=== PATIENT | female | born 1965 | race Caucasian/White ===

== ENCOUNTER 2020-11-28 13:12 | Inpatient (IN) | payer OTHER ==
[2020-11-28 13:39] VITALS: BMI 34.9
[2020-11-28] MEDS ORDERED: BISMUTH SUBSALICYLATE 262 MG/15 ML BTL PO PRN (14:50)
[2020-11-28] MEDS ORDERED: ONDANSETRON *ODT* 4 MG TABLET SL PRN (14:50)
[2020-11-28] MEDS ORDERED: NICOTINE POLACRILEX 2 MG GUM BUC PRN (14:50)
[2020-11-28] MEDS ORDERED: IBUPROFEN 400 MG TABLET (FP) PO PRN (14:50)
[2020-11-28] MEDS ORDERED: MENTHOL/PHENOL 1 EACH UD MM PRN (14:50)
[2020-11-28] MEDS ORDERED: MAGNESIUM CITRATE 300 ML BOTTLE PO PRN (14:50)
[2020-11-28] MEDS ORDERED: ACETAMINOPHEN 325 MG TABLET (FP) PO PRN ×2 (14:50)
[2020-11-28] MEDS ORDERED: MAGNESIUM HYDROX 2400MG/30ML ORAL SUSPENSION 30 ML CUP PO PRN (14:50)
[2020-11-28] MEDS ORDERED: MAG HYDROX/AL HYDROX/SIMETH 30 ML UNIT-DOSE CUP PO PRN (14:50)
[2020-11-28] MEDS ORDERED: METHADONE HCL 10 MG TABLET (FOR DETOX USE ONLY) PO ONE (14:50)
[2020-11-28] MEDS: metFORMIN HCL 500 MG TABLET (FP) PO SCH (16:48)
[2020-11-28] MEDS: NICOTINE 21 MG/24 HOURS TOPICAL PATCH TD SCH (16:48)
[2020-11-28 16:57] LABS: HEMATOCRIT 44.7 % (32.4-45.2); HEMOGLOBIN 14.9 GM/dL (10.7-15.3); MCH 30.7 pg (25.7-33.7); MCHC 33.4 g/dl (32.0-36.0); MEAN PLT VOLUME 9.3 fl (7.5-11.1); PLATELET COUNT 279 K/MM3 (134-434); RBC 4.86 M/mm3 (3.60-5.2); RDW 13.4 % (11.6-15.6); WHITE BLOOD COUNT 11.2 K/mm3 (4.0-10.0)
[2020-11-28 17:08] LABS: ALBUMIN 3.9 g/dl (3.4-5.0); CALCIUM 9.5 mg/dL (8.5-10.1)
[2020-11-28 17:11] LABS: CREATININE 0.9 mg/dL (0.55-1.3)
[2020-11-28 17:13] LABS: BILIRUBIN,TOTAL 0.2 mg/dL (0.2-1)
[2020-11-28 17:14] LABS: TOT PROT 7.7 g/dl (6.4-8.2)
[2020-11-28] MEDS: hydrOXYzine PAMOATE 25 MG CAPSULE (FP) PO SCH ×2 (17:26→22:35)
[2020-11-28] MEDS: METHOCARBAMOL 500 MG TABLET PO PRN (19:09)
[2020-11-28] MEDS: cloNIDine HCL 0.1 MG TABLET PO PRN (19:09)
[2020-11-28] MEDS: MELATONIN 5 MG TABLETS PO SCH (22:35)
[2020-11-28] MEDS: ATORVASTATIN CA 40 MG TABLET (FP) PO SCH (22:35)
[2020-11-28] MEDS: THIAMINE HCL 100 MG TABLET (FP) PO SCH (22:35)
[2020-11-29] MEDS: hydrOXYzine PAMOATE 25 MG CAPSULE (FP) PO SCH ×2 (05:45→09:38)
[2020-11-29] MEDS: cloNIDine HCL 0.1 MG TABLET PO PRN ×2 (05:47→14:31)
[2020-11-29] MEDS: metFORMIN HCL 500 MG TABLET (FP) PO SCH ×2 (06:02→17:30)
[2020-11-29] MEDS ORDERED: METHADONE HCL 10 MG TABLET (FOR DETOX USE ONLY) ONE (08:45)
[2020-11-29] MEDS ORDERED: METHADONE HCL 5 MG TABLET (FOR DETOX USE ONLY) ONE (08:45)
[2020-11-29] MEDS: PRENATAL VITAMINS W/ FOLIC ACID TABLET (FP) PO SCH (09:38)
[2020-11-29] MEDS: NIFEdipine E.R. 90 MG TABLET PO SCH (09:38)
[2020-11-29] MEDS: LOSARTAN POTASSIUM 50 MG TABLET PO SCH (09:38)
[2020-11-29] MEDS: NICOTINE 21 MG/24 HOURS TOPICAL PATCH TD SCH (09:38)
[2020-11-29] MEDS: METHOCARBAMOL 500 MG TABLET PO PRN ×2 (09:39→18:25)
[2020-11-29] MEDS ORDERED: DICYCLOMINE HCL 10 MG CAPSULE PO PRN (09:58)
[2020-11-29] MEDS ORDERED: METHADONE (DETOX) 20 MG, METHADONE (DETOX) 5 MG PO ONE (10:00)
[2020-11-29] MEDS ORDERED: diphenhydrAMINE HCL 25 MG CAPSULE (FP) PO ONE (14:00)
[2020-11-29] MEDS: BACITRACIN 0.9 GM PACKET TP SCH ×2 (14:06→22:12)
[2020-11-29] MEDS: NYSTATIN/TRIAMCINOLONE TOPICAL CREAM 15 GM TUBE TP SCH ×2 (16:04→23:17)
[2020-11-29] MEDS: hydrOXYzine PAMOATE 25 MG CAPSULE (FP) PO PRN ×2 (17:31→22:12)
[2020-11-29] MEDS: MELATONIN 5 MG TABLETS PO SCH (22:12)
[2020-11-29] MEDS: THIAMINE HCL 100 MG TABLET (FP) PO SCH (22:12)
[2020-11-29] MEDS: ATORVASTATIN CA 40 MG TABLET (FP) PO SCH (22:12)
[2020-11-30] MEDS: METHOCARBAMOL 500 MG TABLET PO PRN (05:55)
[2020-11-30] MEDS: cloNIDine HCL 0.1 MG TABLET PO PRN ×2 (05:56→22:20)
[2020-11-30] MEDS: hydrOXYzine PAMOATE 25 MG CAPSULE (FP) PO PRN ×2 (05:56→22:21)
[2020-11-30] MEDS: metFORMIN HCL 500 MG TABLET (FP) PO SCH ×2 (07:52→17:03)
[2020-11-30] MEDS ORDERED: METHADONE HCL 10 MG TABLET (FOR DETOX USE ONLY) PO ONE (10:00)
[2020-11-30] MEDS: NYSTATIN/TRIAMCINOLONE TOPICAL CREAM 15 GM TUBE TP SCH ×2 (10:03→22:19)
[2020-11-30] MEDS: PRENATAL VITAMINS W/ FOLIC ACID TABLET (FP) PO SCH (10:03)
[2020-11-30] MEDS: BACITRACIN 0.9 GM PACKET TP SCH ×2 (10:03→22:19)
[2020-11-30] MEDS: NIFEdipine E.R. 90 MG TABLET PO SCH (10:03)
[2020-11-30] MEDS: NICOTINE 21 MG/24 HOURS TOPICAL PATCH TD SCH (10:05)
[2020-11-30] MEDS: LOSARTAN POTASSIUM 50 MG TABLET PO SCH (10:05)
[2020-11-30] MEDS: THIAMINE HCL 100 MG TABLET (FP) PO SCH (22:19)
[2020-11-30] MEDS: ATORVASTATIN CA 40 MG TABLET (FP) PO SCH (22:19)
[2020-11-30] MEDS: MELATONIN 5 MG TABLETS PO SCH (22:19)
[2020-12-01 06:08] LABS: SARS-CoV-2 NAA Not Detected (Not Detected)
[2020-12-01] MEDS: metFORMIN HCL 500 MG TABLET (FP) PO SCH ×2 (07:34→17:52)
[2020-12-01] MEDS: hydrOXYzine PAMOATE 25 MG CAPSULE (FP) PO PRN (07:34)
[2020-12-01] MEDS ORDERED: METHADONE HCL 5 MG TABLET (FOR DETOX USE ONLY) ONE (10:00)
[2020-12-01] MEDS ORDERED: METHADONE (DETOX) 10 MG, METHADONE (DETOX) 5 MG PO ONE (10:00)
[2020-12-01] MEDS ORDERED: METHADONE HCL 10 MG TABLET (FOR DETOX USE ONLY) ONE (10:00)
[2020-12-01] MEDS: LOSARTAN POTASSIUM 50 MG TABLET PO SCH (11:04)
[2020-12-01] MEDS: PRENATAL VITAMINS W/ FOLIC ACID TABLET (FP) PO SCH (11:04)
[2020-12-01] MEDS: BACITRACIN 0.9 GM PACKET TP SCH ×2 (11:05→22:10)
[2020-12-01] MEDS: NYSTATIN/TRIAMCINOLONE TOPICAL CREAM 15 GM TUBE TP SCH ×2 (11:06→22:10)
[2020-12-01] MEDS: NICOTINE 21 MG/24 HOURS TOPICAL PATCH TD SCH (11:07)
[2020-12-01] MEDS: NIFEdipine E.R. 90 MG TABLET PO SCH (11:07)
[2020-12-01] MEDS: METHOCARBAMOL 500 MG TABLET PO PRN ×2 (11:07→17:52)
[2020-12-01] MEDS: LITHIUM CARBONATE 300 MG CAPSULE PO SCH (22:10)
[2020-12-01] MEDS: THIAMINE HCL 100 MG TABLET (FP) PO SCH (22:10)
[2020-12-01] MEDS: MELATONIN 5 MG TABLETS PO SCH (22:10)
[2020-12-01] MEDS: ATORVASTATIN CA 40 MG TABLET (FP) PO SCH (22:10)
[2020-12-02] MEDS: hydrOXYzine PAMOATE 25 MG CAPSULE (FP) PO PRN ×2 (06:00→15:16)
[2020-12-02] MEDS: METHOCARBAMOL 500 MG TABLET PO PRN ×2 (06:00→15:16)
[2020-12-02] MEDS: metFORMIN HCL 500 MG TABLET (FP) PO SCH ×2 (06:00→18:10)
[2020-12-02] MEDS: PRENATAL VITAMINS W/ FOLIC ACID TABLET (FP) PO SCH (09:39)
[2020-12-02] MEDS: BACITRACIN 0.9 GM PACKET TP SCH ×2 (09:39→22:19)
[2020-12-02] MEDS: LOSARTAN POTASSIUM 50 MG TABLET PO SCH (09:39)
[2020-12-02] MEDS: NIFEdipine E.R. 90 MG TABLET PO SCH (09:39)
[2020-12-02] MEDS: NYSTATIN/TRIAMCINOLONE TOPICAL CREAM 15 GM TUBE TP SCH ×2 (09:42→22:20)
[2020-12-02] MEDS: NICOTINE 21 MG/24 HOURS TOPICAL PATCH TD SCH (09:42)
[2020-12-02] MEDS ORDERED: METHADONE HCL 10 MG TABLET (FOR DETOX USE ONLY) PO ONE (10:00)
[2020-12-02] MEDS: THIAMINE HCL 100 MG TABLET (FP) PO SCH (22:20)
[2020-12-02] MEDS: MELATONIN 5 MG TABLETS PO SCH (22:20)
[2020-12-02] MEDS: ATORVASTATIN CA 40 MG TABLET (FP) PO SCH (22:20)
[2020-12-02] MEDS: LITHIUM CARBONATE 300 MG CAPSULE PO SCH (22:21)
[2020-12-03] MEDS ORDERED: METHADONE HCL 5 MG TABLET (FOR DETOX USE ONLY) PO ONE (06:00)
[2020-12-03] MEDS: hydrOXYzine PAMOATE 25 MG CAPSULE (FP) PO PRN (06:28)
[2020-12-03] MEDS: METHOCARBAMOL 500 MG TABLET PO PRN (06:28)
[2020-12-03] MEDS: metFORMIN HCL 500 MG TABLET (FP) PO SCH (06:28)
[2020-12-03 09:09] VITALS: BP 144/76; PULSE 73; TEMP 96.6
[2020-12-03] MEDS: BACITRACIN 0.9 GM PACKET TP SCH (09:38)
[2020-12-03] MEDS: PRENATAL VITAMINS W/ FOLIC ACID TABLET (FP) PO SCH (09:38)
[2020-12-03] MEDS: NIFEdipine E.R. 90 MG TABLET PO SCH (09:38)
[2020-12-03] MEDS: LOSARTAN POTASSIUM 50 MG TABLET PO SCH (09:38)
[2020-12-03] MEDS: NICOTINE 21 MG/24 HOURS TOPICAL PATCH TD SCH (09:40)
[2020-12-03] MEDS: NYSTATIN/TRIAMCINOLONE TOPICAL CREAM 15 GM TUBE TP SCH (09:40)
== END 2020-12-03 10:18 | disposition home or self-care (01) | DRG 773 ==
LOC: YASAS 13:12 → Y3N 15:07
PROVIDERS: ADMIT Allergy & Immunology; ATTEND Allergy & Immunology
PROC: HZ2ZZZZ Detoxification Services for Substance Abuse Treatment (ICD-10-PCS; principal; 2020-11-28)
DX: F11.23 Opioid dependence with withdrawal (principal); F12.10 Cannabis abuse, uncomplicated; F17.210 Nicotine dependence, cigarettes, uncomplicated; F31.9 Bipolar disorder, unspecified; I10 Essential (primary) hypertension; J45.909 Unspecified asthma, uncomplicated; E11.9 Type 2 diabetes mellitus without complications; Z79.84 Long term (current) use of oral hypoglycemic drugs; D72.829 Elevated white blood cell count, unspecified; R79.89 Other specified abnormal findings of blood chemistry; L74.0 Miliaria rubra; M51.26 Other intervertebral disc displacement, lumbar region; M25.562 Pain in left knee; E66.9 Obesity, unspecified; Z68.34 Body mass index [BMI] 34.0-34.9, adult; Z88.0 Allergy status to penicillin; Z88.8 Allergy status to other drugs, medicaments and biological substances; Z91.018 Allergy to other foods; Z99.89 Dependence on other enabling machines and devices; T22.012D Burn of unspecified degree of left forearm, subsequent encounter; X15.0XXD Contact with hot stove (kitchen), subsequent encounter
CPT/HCPCS: 36415; 80053; 80178; 81025; 82962; 85027; 86780; 93005; 93010; C9803; J0735; U0003; U0005

== ENCOUNTER 2021-01-14 09:54 | Inpatient (IN) | payer OTHER ==
[2021-01-14 12:23] VITALS: BMI 32.5
[2021-01-14] MEDS ORDERED: methaDONE HCL 10 MG TABLET (FOR DETOX USE ONLY) PO ONE (14:07)
[2021-01-14] MEDS ORDERED: ACETAMINOPHEN 325 MG TABLET (FP) PO PRN ×2 (14:07)
[2021-01-14] MEDS ORDERED: NICOTINE POLACRILEX 2 MG GUM BUC PRN (14:07)
[2021-01-14] MEDS ORDERED: MAGNESIUM CITRATE 300 ML BOTTLE PO PRN (14:07)
[2021-01-14] MEDS ORDERED: MAGNESIUM HYDROX 2400MG/30ML ORAL SUSPENSION 30 ML CUP PO PRN (14:07)
[2021-01-14] MEDS ORDERED: ONDANSETRON *ODT* 4 MG TABLET SL PRN (14:07)
[2021-01-14] MEDS ORDERED: MENTHOL/PHENOL 1 EACH UD MM PRN (14:07)
[2021-01-14] MEDS ORDERED: BISMUTH SUBSALICYLATE 524 MG/30 ML PO PRN (14:07)
[2021-01-14] MEDS ORDERED: cloNIDine HCL 0.1 MG TABLET PO PRN (14:07)
[2021-01-14] MEDS: IBUPROFEN 400 MG TABLET (FP) PO PRN (15:39)
[2021-01-14] MEDS: NICOTINE 21 MG/24 HOURS TOPICAL PATCH TD SCH (15:40)
[2021-01-14] MEDS ORDERED: ALBUTEROL SO4 HFA INHALER IH PRN (17:10)
[2021-01-14] MEDS: hydrOXYzine PAMOATE 25 MG CAPSULE (FP) PO SCH ×2 (17:44→22:18)
[2021-01-14] MEDS: LOSARTAN POTASSIUM 50 MG TABLET PO SCH (17:44)
[2021-01-14] MEDS: NIFEdipine E.R. 90 MG TABLET PO SCH (19:32)
[2021-01-14] MEDS ORDERED: MELATONIN 5 MG TABLETS PO SCH (22:00)
[2021-01-14] MEDS: ATORVASTATIN CA 40 MG TABLET (FP) PO SCH (22:18)
[2021-01-14] MEDS: THIAMINE HCL 100 MG TABLET (FP) PO SCH (22:18)
[2021-01-14] MEDS: INSULIN (NOVOLOG) ASPART 100 UNITS/ML 10ML VIAL SQ SCH (22:19)
[2021-01-15] MEDS: hydrOXYzine PAMOATE 25 MG CAPSULE (FP) PO SCH ×5 (05:50→22:23)
[2021-01-15] MEDS: metFORMIN HCL 500 MG TABLET (FP) PO SCH ×2 (06:02→16:46)
[2021-01-15] MEDS: INSULIN (NOVOLOG) ASPART 100 UNITS/ML 10ML VIAL SQ SCH ×4 (06:07→22:28)
[2021-01-15] MEDS ORDERED: methaDONE HCL 10 MG TABLET (FOR DETOX USE ONLY) ONE (09:09)
[2021-01-15] MEDS: METHOCARBAMOL 500 MG TABLET PO PRN (10:01)
[2021-01-15] MEDS: NIFEdipine E.R. 90 MG TABLET PO SCH (10:01)
[2021-01-15] MEDS: LOSARTAN POTASSIUM 50 MG TABLET PO SCH (10:01)
[2021-01-15] MEDS: PRENATAL VITAMINS W/ FOLIC ACID TABLET (FP) PO SCH (10:01)
[2021-01-15] MEDS: NICOTINE 21 MG/24 HOURS TOPICAL PATCH TD SCH (10:04)
[2021-01-15] MEDS ORDERED: COVID-19 VAC,AD26(JANSSEN)/PF 0.5 ML IM ONE (11:00)
[2021-01-15] MEDS: diazePAM 5 MG TABLET PO PRN (11:31)
[2021-01-15 13:40] LABS: PH,URINE 7.5 (5.0-8.0); URINE APPEARANCE Clear; URINE BILIRUBIN Negative (NEGATIVE); URINE COLOR Yellow; URINE GLUCOSE (UA) Negative (NEGATIVE); URINE KETONE Negative (NEGATIVE); URINE LEUK ESTERASE Negative (NEGATIVE); URINE NITRITE Negative (NEGATIVE); URINE PROTEIN Negative (NEGATIVE); URINE UROBILINOGEN 0.2 mg/dL (0.2-1.0)
[2021-01-15 17:05] LABS: HEMATOCRIT 41.3 % (32.4-45.2); HEMOGLOBIN 13.8 GM/dL (10.7-15.3); MCH 30.2 pg (25.7-33.7); MCHC 33.4 g/dl (32.0-36.0); MEAN CELL VOLUME 90.4 fl (80-96); MEAN PLT VOLUME 10.4 fl (7.5-11.1); PLATELET COUNT 195 10^3/uL (134-434); RBC 4.57 M/mm3 (3.60-5.2); RDW 13.7 % (11.6-15.6); WHITE BLOOD COUNT 16.3 K/mm3 (4.0-10.0)
[2021-01-15 17:11] LABS: CALCIUM 8.8 mg/dL (8.5-10.1)
[2021-01-15 17:12] LABS: ALBUMIN 3.8 g/dl (3.4-5.0); BLOOD UREA NITROGEN 17.6 mg/dL (7-18)
[2021-01-15 17:15] LABS: CREATININE 0.8 mg/dL (0.55-1.3)
[2021-01-15 17:16] LABS: BILIRUBIN,TOTAL 0.3 mg/dL (0.2-1); TOT PROT 7.6 g/dl (6.4-8.2)
[2021-01-15] MEDS: MAG HYDROX/AL HYDROX/SIMETH 30 ML UNIT-DOSE CUP PO PRN (21:24)
[2021-01-15] MEDS: THIAMINE HCL 100 MG TABLET (FP) PO SCH (22:23)
[2021-01-15] MEDS: ATORVASTATIN CA 40 MG TABLET (FP) PO SCH (22:23)
[2021-01-15] MEDS: LITHIUM CARBONATE 300 MG CAPSULE PO SCH (22:24)
[2021-01-16] MEDS: IBUPROFEN 400 MG TABLET (FP) PO PRN ×3 (06:07→22:06)
[2021-01-16] MEDS: metFORMIN HCL 500 MG TABLET (FP) PO SCH ×2 (06:07→17:49)
[2021-01-16] MEDS: hydrOXYzine PAMOATE 25 MG CAPSULE (FP) PO SCH ×5 (06:07→22:03)
[2021-01-16] MEDS: INSULIN (NOVOLOG) ASPART 100 UNITS/ML 10ML VIAL SQ SCH ×4 (06:09→22:04)
[2021-01-16] MEDS: diazePAM 5 MG TABLET PO PRN (07:27)
[2021-01-16] MEDS ORDERED: MASKS NR ONE (09:44)
[2021-01-16] MEDS ORDERED: methaDONE HCL 10 MG TABLET (FOR DETOX USE ONLY) PO ONE (10:00)
[2021-01-16] MEDS: NIFEdipine E.R. 90 MG TABLET PO SCH (10:09)
[2021-01-16] MEDS: PRENATAL VITAMINS W/ FOLIC ACID TABLET (FP) PO SCH (10:10)
[2021-01-16] MEDS: NICOTINE 21 MG/24 HOURS TOPICAL PATCH TD SCH (10:10)
[2021-01-16] MEDS: LOSARTAN POTASSIUM 50 MG TABLET PO SCH (10:12)
[2021-01-16] MEDS: MAG HYDROX/AL HYDROX/SIMETH 30 ML UNIT-DOSE CUP PO PRN ×2 (12:39→22:18)
[2021-01-16] MEDS: TRIAMCINOLONE ACET 0.1% CREAM 15 GM TUBE TP SCH ×3 (14:02→22:04)
[2021-01-16] MEDS: ATORVASTATIN CA 40 MG TABLET (FP) PO SCH (22:03)
[2021-01-16] MEDS: THIAMINE HCL 100 MG TABLET (FP) PO SCH (22:03)
[2021-01-16] MEDS: LITHIUM CARBONATE 300 MG CAPSULE PO SCH (22:04)
[2021-01-17] MEDS: METHOCARBAMOL 500 MG TABLET PO PRN (05:46)
[2021-01-17] MEDS: hydrOXYzine PAMOATE 25 MG CAPSULE (FP) PO SCH ×5 (05:46→22:09)
[2021-01-17] MEDS: metFORMIN HCL 500 MG TABLET (FP) PO SCH ×2 (06:08→18:02)
[2021-01-17] MEDS: INSULIN (NOVOLOG) ASPART 100 UNITS/ML 10ML VIAL SQ SCH ×4 (06:08→22:09)
[2021-01-17] MEDS ORDERED: methaDONE HCL 10 MG TABLET (FOR DETOX USE ONLY) ONE (08:50)
[2021-01-17] MEDS: NICOTINE 21 MG/24 HOURS TOPICAL PATCH TD SCH (10:10)
[2021-01-17] MEDS: MAG HYDROX/AL HYDROX/SIMETH 30 ML UNIT-DOSE CUP PO PRN (10:10)
[2021-01-17] MEDS: IBUPROFEN 400 MG TABLET (FP) PO PRN (10:11)
[2021-01-17] MEDS: NIFEdipine E.R. 90 MG TABLET PO SCH (10:12)
[2021-01-17] MEDS: TRIAMCINOLONE ACET 0.1% CREAM 15 GM TUBE TP SCH ×4 (10:12→22:10)
[2021-01-17] MEDS: LOSARTAN POTASSIUM 50 MG TABLET PO SCH (10:12)
[2021-01-17] MEDS: PRENATAL VITAMINS W/ FOLIC ACID TABLET (FP) PO SCH (10:12)
[2021-01-17] MEDS: THIAMINE HCL 100 MG TABLET (FP) PO SCH (22:09)
[2021-01-17] MEDS: ATORVASTATIN CA 40 MG TABLET (FP) PO SCH (22:09)
[2021-01-17] MEDS: MELATONIN 5 MG TABLETS PO PRN (22:09)
[2021-01-17] MEDS: LITHIUM CARBONATE 300 MG CAPSULE PO SCH (22:09)
[2021-01-18] MEDS: MAG HYDROX/AL HYDROX/SIMETH 30 ML UNIT-DOSE CUP PO PRN (00:01)
[2021-01-18] MEDS: metFORMIN HCL 500 MG TABLET (FP) PO SCH ×2 (06:52→18:11)
[2021-01-18] MEDS: hydrOXYzine PAMOATE 25 MG CAPSULE (FP) PO SCH ×5 (06:52→22:24)
[2021-01-18] MEDS: INSULIN (NOVOLOG) ASPART 100 UNITS/ML 10ML VIAL SQ SCH ×4 (07:28→22:23)
[2021-01-18] MEDS ORDERED: methaDONE HCL 10 MG TABLET (FOR DETOX USE ONLY) PO ONE (10:00)
[2021-01-18] MEDS: LOSARTAN POTASSIUM 50 MG TABLET PO SCH (10:03)
[2021-01-18] MEDS: NICOTINE 21 MG/24 HOURS TOPICAL PATCH TD SCH (10:03)
[2021-01-18] MEDS: PRENATAL VITAMINS W/ FOLIC ACID TABLET (FP) PO SCH (10:03)
[2021-01-18] MEDS: TRIAMCINOLONE ACET 0.1% CREAM 15 GM TUBE TP SCH ×4 (10:04→22:23)
[2021-01-18] MEDS: NIFEdipine E.R. 90 MG TABLET PO SCH (10:04)
[2021-01-18] MEDS: LITHIUM CARBONATE 300 MG CAPSULE PO SCH (22:17)
[2021-01-18] MEDS: ATORVASTATIN CA 40 MG TABLET (FP) PO SCH (22:17)
[2021-01-18] MEDS: THIAMINE HCL 100 MG TABLET (FP) PO SCH (22:24)
[2021-01-19] MEDS: hydrOXYzine PAMOATE 25 MG CAPSULE (FP) PO SCH ×5 (06:36→21:47)
[2021-01-19] MEDS: metFORMIN HCL 500 MG TABLET (FP) PO SCH ×2 (06:38→17:26)
[2021-01-19] MEDS: INSULIN (NOVOLOG) ASPART 100 UNITS/ML 10ML VIAL SQ SCH ×4 (06:39→21:46)
[2021-01-19] MEDS: NIFEdipine E.R. 90 MG TABLET PO SCH (10:18)
[2021-01-19] MEDS: PRENATAL VITAMINS W/ FOLIC ACID TABLET (FP) PO SCH (10:18)
[2021-01-19] MEDS: LOSARTAN POTASSIUM 50 MG TABLET PO SCH (10:18)
[2021-01-19] MEDS: NICOTINE 21 MG/24 HOURS TOPICAL PATCH TD SCH (10:18)
[2021-01-19] MEDS: TRIAMCINOLONE ACET 0.1% CREAM 15 GM TUBE TP SCH ×4 (10:18→22:09)
[2021-01-19] MEDS: METHOCARBAMOL 500 MG TABLET PO PRN (10:19)
[2021-01-19] MEDS: THIAMINE HCL 100 MG TABLET (FP) PO SCH (21:47)
[2021-01-19] MEDS: LITHIUM CARBONATE 300 MG CAPSULE PO SCH (21:47)
[2021-01-19] MEDS: ATORVASTATIN CA 40 MG TABLET (FP) PO SCH (21:47)
[2021-01-19] MEDS: MELATONIN 5 MG TABLETS PO PRN (21:48)
[2021-01-20] MEDS: INSULIN (NOVOLOG) ASPART 100 UNITS/ML 10ML VIAL SQ SCH ×4 (06:05→21:15)
[2021-01-20] MEDS: hydrOXYzine PAMOATE 25 MG CAPSULE (FP) PO SCH ×3 (06:06→14:16)
[2021-01-20] MEDS: metFORMIN HCL 500 MG TABLET (FP) PO SCH ×2 (06:06→17:08)
[2021-01-20] MEDS: IBUPROFEN 400 MG TABLET (FP) PO PRN (06:07)
[2021-01-20] MEDS: PRENATAL VITAMINS W/ FOLIC ACID TABLET (FP) PO SCH (10:34)
[2021-01-20] MEDS: NICOTINE 21 MG/24 HOURS TOPICAL PATCH TD SCH (10:35)
[2021-01-20] MEDS: LOSARTAN POTASSIUM 50 MG TABLET PO SCH (10:38)
[2021-01-20] MEDS: METHOCARBAMOL 500 MG TABLET PO PRN (10:38)
[2021-01-20] MEDS: MAG HYDROX/AL HYDROX/SIMETH 30 ML UNIT-DOSE CUP PO PRN (10:39)
[2021-01-20] MEDS: TRIAMCINOLONE ACET 0.1% CREAM 15 GM TUBE TP SCH ×4 (10:39→21:15)
[2021-01-20] MEDS: NIFEdipine E.R. 90 MG TABLET PO SCH (10:39)
[2021-01-20] MEDS: ATORVASTATIN CA 40 MG TABLET (FP) PO SCH (21:14)
[2021-01-20] MEDS: THIAMINE HCL 100 MG TABLET (FP) PO SCH (21:14)
[2021-01-20] MEDS: LITHIUM CARBONATE 300 MG CAPSULE PO SCH (21:15)
[2021-01-20] MEDS: MELATONIN 5 MG TABLETS PO PRN (21:16)
[2021-01-21] MEDS: IBUPROFEN 400 MG TABLET (FP) PO PRN ×2 (03:36→12:02)
[2021-01-21] MEDS: INSULIN (NOVOLOG) ASPART 100 UNITS/ML 10ML VIAL SQ SCH ×4 (06:12→22:10)
[2021-01-21] MEDS: metFORMIN HCL 500 MG TABLET (FP) PO SCH ×2 (06:12→17:42)
[2021-01-21] MEDS: LOSARTAN POTASSIUM 50 MG TABLET PO SCH (10:33)
[2021-01-21] MEDS: PRENATAL VITAMINS W/ FOLIC ACID TABLET (FP) PO SCH (10:33)
[2021-01-21] MEDS: NIFEdipine E.R. 90 MG TABLET PO SCH (10:33)
[2021-01-21] MEDS: TRIAMCINOLONE ACET 0.1% CREAM 15 GM TUBE TP SCH ×4 (10:33→22:13)
[2021-01-21] MEDS: NICOTINE 21 MG/24 HOURS TOPICAL PATCH TD SCH (10:33)
[2021-01-21] MEDS ORDERED: hydrOXYzine PAMOATE 25 MG CAPSULE (FP) PO ONE (13:31)
[2021-01-21] MEDS ORDERED: PT OWN MED DRAWER 7, Y5N ONE (17:45)
[2021-01-21] MEDS: ATORVASTATIN CA 40 MG TABLET (FP) PO SCH (22:13)
[2021-01-21] MEDS: THIAMINE HCL 100 MG TABLET (FP) PO SCH (22:13)
[2021-01-21] MEDS: LITHIUM CARBONATE 300 MG CAPSULE PO SCH (22:13)
[2021-01-22] MEDS: IBUPROFEN 400 MG TABLET (FP) PO PRN ×2 (04:27→11:47)
[2021-01-22] MEDS: metFORMIN HCL 500 MG TABLET (FP) PO SCH (06:47)
[2021-01-22] MEDS: INSULIN (NOVOLOG) ASPART 100 UNITS/ML 10ML VIAL SQ SCH ×2 (06:48→11:48)
[2021-01-22 07:39] VITALS: TEMP 98.2
[2021-01-22 09:18] VITALS: BP 141/76; PULSE 67
[2021-01-22] MEDS: PRENATAL VITAMINS W/ FOLIC ACID TABLET (FP) PO SCH (10:53)
[2021-01-22] MEDS: NICOTINE 21 MG/24 HOURS TOPICAL PATCH TD SCH (10:53)
[2021-01-22] MEDS: LOSARTAN POTASSIUM 50 MG TABLET PO SCH (10:53)
[2021-01-22] MEDS: TRIAMCINOLONE ACET 0.1% CREAM 15 GM TUBE TP SCH (10:54)
[2021-01-22] MEDS: NIFEdipine E.R. 90 MG TABLET PO SCH (10:54)
[2021-01-22] MEDS ORDERED: hydrOXYzine PAMOATE 25 MG CAPSULE (FP) PO PRN (11:24)
== END 2021-01-19 17:40 | disposition home or self-care (01) | DRG 773 ==
LOC: YASAS 09:54 → Y6N 14:34 → Y5N 01-19 18:11 → Y6N 01-19 18:11 → Y5N 01-19 19:25
PROVIDERS: ADMIT Allergy & Immunology; ATTEND Allergy & Immunology
PROC: HZ2ZZZZ Detoxification Services for Substance Abuse Treatment (ICD-10-PCS; principal; 2021-01-14)
DX: F11.23 Opioid dependence with withdrawal (principal); F17.210 Nicotine dependence, cigarettes, uncomplicated; F19.282 Other psychoactive substance dependence with psychoactive substance-induced sleep disorder; F19.24 Other psychoactive substance dependence with psychoactive substance-induced mood disorder; F31.9 Bipolar disorder, unspecified; I10 Essential (primary) hypertension; E11.9 Type 2 diabetes mellitus without complications; Z79.84 Long term (current) use of oral hypoglycemic drugs; J45.909 Unspecified asthma, uncomplicated; E66.9 Obesity, unspecified; Z68.32 Body mass index [BMI] 32.0-32.9, adult; M12.9 Arthropathy, unspecified; M51.26 Other intervertebral disc displacement, lumbar region; Z99.89 Dependence on other enabling machines and devices; Z88.8 Allergy status to other drugs, medicaments and biological substances; Z56.0 Unemployment, unspecified; Z59.0 Homelessness
CPT/HCPCS: 0031A; 36415; 80053; 81003; 81025; 82962; 84132; 85027; 86780; 91303; C9803; U0003; U0005

== ENCOUNTER 2021-01-19 17:45 | Inpatient (IN) | payer OTHER ==
[2021-01-22] MEDS ORDERED: P-EPHED 60MG/TRIPROLIDI 2.5MG TABLET PO PRN (12:44)
[2021-01-22] MEDS ORDERED: IBUPROFEN 400 MG TABLET (FP) PO PRN (12:44)
[2021-01-22] MEDS ORDERED: guaiFENesin 200 MG/10 ML 10 ML UNIT-DOSE CUPS PO PRN (12:44)
[2021-01-22] MEDS ORDERED: MAGNESIUM CITRATE 300 ML BOTTLE PO PRN (12:44)
[2021-01-22] MEDS ORDERED: ACETAMINOPHEN 325 MG TABLET (FP) PO PRN (12:44)
[2021-01-22] MEDS ORDERED: NICOTINE POLACRILEX 2 MG GUM BUC PRN (12:44)
[2021-01-22] MEDS ORDERED: MAG HYDROX/AL HYDROX/SIMETH 30 ML UNIT-DOSE CUP PO PRN (12:44)
[2021-01-22] MEDS ORDERED: LOPERAMIDE HCL 2 MG CAPSULE PO PRN (12:44)
[2021-01-22] MEDS ORDERED: MAGNESIUM HYDROX 2400MG/30ML ORAL SUSPENSION 30 ML CUP PO PRN (12:44)
[2021-01-22] MEDS ORDERED: PRENATAL VITAMINS W/ FOLIC ACID TABLET (FP) PO SCH (12:45)
[2021-01-22] MEDS ORDERED: ALBUTEROL SO4 HFA INHALER IH PRN (12:53)
[2021-01-22] MEDS ORDERED: NALOXONE (NARCAN) HCL 4 MG/0.1 ML SPRAY NS PRN (12:55)
[2021-01-22] MEDS ORDERED: NICOTINE 14 MG/24 HOURS TOPICAL PATCH TD SCH (13:00)
[2021-01-22] MEDS ORDERED: NIFEdipine E.R. 90 MG TABLET PO SCH (13:00)
[2021-01-22] MEDS: hydrOXYzine PAMOATE 25 MG CAPSULE (FP) PO SCH ×3 (14:38→23:04)
[2021-01-22] MEDS: metFORMIN HCL 500 MG TABLET (FP) PO SCH (17:05)
[2021-01-22] MEDS ORDERED: MELATONIN 5 MG TABLETS PO SCH (22:00)
[2021-01-22] MEDS ORDERED: ATORVASTATIN CA 40 MG TABLET (FP) PO SCH (22:00)
[2021-01-22] MEDS ORDERED: THIAMINE HCL 100 MG TABLET (FP) PO SCH (22:00)
[2021-01-22] MEDS ORDERED: LITHIUM CARBONATE 300 MG CAPSULE PO SCH (22:00)
[2021-01-22] MEDS ORDERED: PT OWN MED DRAWER 7, Y5N ONE (23:03)
[2021-01-23] MEDS: hydrOXYzine PAMOATE 25 MG CAPSULE (FP) PO SCH (06:04)
[2021-01-23] MEDS: metFORMIN HCL 500 MG TABLET (FP) PO SCH (06:04)
[2021-01-23 07:33] VITALS: BP 129/68; PULSE 67; TEMP 97.4
[2021-01-23] MEDS ORDERED: LOSARTAN POTASSIUM 50 MG TABLET PO SCH (10:00)
== END 2021-01-23 08:55 | disposition home or self-care (01) | DRG 772 ==
LOC: YASAS 17:45 → Y5N 17:46
PROVIDERS: ADMIT Allergy & Immunology; ATTEND Allergy & Immunology
PROC: HZ42ZZZ Group Counseling for Substance Abuse Treatment, Cognitive-Behavioral (ICD-10-PCS; principal; 2021-01-19)
DX: F11.20 Opioid dependence, uncomplicated (principal); F17.210 Nicotine dependence, cigarettes, uncomplicated; F31.9 Bipolar disorder, unspecified; I10 Essential (primary) hypertension; E78.5 Hyperlipidemia, unspecified; E11.9 Type 2 diabetes mellitus without complications; Z79.84 Long term (current) use of oral hypoglycemic drugs; J45.909 Unspecified asthma, uncomplicated; L40.9 Psoriasis, unspecified; M12.9 Arthropathy, unspecified; M51.26 Other intervertebral disc displacement, lumbar region; E66.9 Obesity, unspecified; Z68.32 Body mass index [BMI] 32.0-32.9, adult; Z99.89 Dependence on other enabling machines and devices; Z88.0 Allergy status to penicillin; Z88.8 Allergy status to other drugs, medicaments and biological substances
CPT/HCPCS: 36415; 82962; 84132; C9803; U0003; U0005

== ENCOUNTER 2021-05-14 12:31 | Inpatient (IN) | payer OTHER ==
[2021-05-14 14:16] VITALS: BMI 33.9
[2021-05-14] MEDS ORDERED: MENTHOL/PHENOL 1 EACH UD MM PRN (17:42)
[2021-05-14] MEDS ORDERED: BISMUTH SUBSALICYLATE 524 MG/30 ML PO PRN (17:42)
[2021-05-14] MEDS ORDERED: MAGNESIUM CITRATE 300 ML BOTTLE PO PRN (17:42)
[2021-05-14] MEDS ORDERED: ONDANSETRON *ODT* 4 MG TABLET SL PRN (17:42)
[2021-05-14] MEDS ORDERED: ACETAMINOPHEN 325 MG TABLET (FP) PO PRN (17:42)
[2021-05-14] MEDS ORDERED: MAGNESIUM HYDROX 2400MG/30ML ORAL SUSPENSION 30 ML CUP PO PRN (17:42)
[2021-05-14] MEDS ORDERED: NICOTINE 10 MG CARTRIDGE (INHALER) IH PRN (17:42)
[2021-05-14] MEDS ORDERED: MAG HYDROX/AL HYDROX/SIMETH 30 ML UNIT-DOSE CUP PO PRN (17:42)
[2021-05-14] MEDS: hydrOXYzine PAMOATE 25 MG CAPSULE (FP) PO SCH ×2 (19:44→23:10)
[2021-05-14] MEDS: METHOCARBAMOL 500 MG TABLET PO PRN (19:44)
[2021-05-14] MEDS: IBUPROFEN 400 MG TABLET (FP) PO PRN (19:47)
[2021-05-14] MEDS: NICOTINE 21 MG/24 HOURS TOPICAL PATCH TD SCH (19:49)
[2021-05-14] MEDS: ATORVASTATIN CA 40 MG TABLET (FP) PO SCH (23:10)
[2021-05-14] MEDS: MELATONIN 5 MG TABLETS PO SCH (23:10)
[2021-05-14] MEDS: THIAMINE HCL 100 MG TABLET (FP) PO SCH (23:10)
[2021-05-15] MEDS: hydrOXYzine PAMOATE 25 MG CAPSULE (FP) PO SCH (06:32)
[2021-05-15] MEDS: metFORMIN HCL 500 MG TABLET (FP) PO SCH ×2 (06:32→18:02)
[2021-05-15] MEDS ORDERED: hydrOXYzine PAMOATE 25 MG CAPSULE (FP) PO PRN (08:53)
[2021-05-15] MEDS ORDERED: methaDONE HCL 10 MG TABLET (FOR DETOX USE ONLY) PO ONE (10:40)
[2021-05-15] MEDS ORDERED: TRIMETHOBENZAMIDE HCL 300 MG CAPSULE PO PRN (10:41)
[2021-05-15 11:33] LABS: HEMATOCRIT 38.7 % (32.4-45.2); HEMOGLOBIN 13.4 GM/dL (10.7-15.3); MCH 30.6 pg (25.7-33.7); MCHC 34.6 g/dl (32.0-36.0); MEAN CELL VOLUME 88.4 fl (80-96); MEAN PLT VOLUME 9.3 fl (7.5-11.1); PLATELET COUNT 221 10^3/uL (134-434); RBC 4.38 M/mm3 (3.60-5.2); RDW 13.3 % (11.6-15.6); WHITE BLOOD COUNT 10.3 K/mm3 (4.0-10.0)
[2021-05-15 11:38] LABS: URINE APPEARANCE CLEAR; URINE BILIRUBIN NEGATIVE (NEGATIVE); URINE COLOR YELLOW; URINE GLUCOSE (UA) NEGATIVE (NEGATIVE); URINE KETONE NEGATIVE (NEGATIVE); URINE LEUK ESTERASE NEGATIVE (NEGATIVE); URINE NITRITE NEGATIVE (NEGATIVE); URINE PROTEIN NEGATIVE (NEGATIVE); URINE UROBILINOGEN 0.2 mg/dL (0.2-1.0)
[2021-05-15 11:45] LABS: CALCIUM 8.6 mg/dL (8.5-10.1)
[2021-05-15 11:46] LABS: BLOOD UREA NITROGEN 22.7 mg/dL (7-18)
[2021-05-15 11:49] LABS: CREATININE 0.8 mg/dL (0.55-1.3)
[2021-05-15 11:50] LABS: BILIRUBIN,TOTAL 0.5 mg/dL (0.2-1); TOT PROT 6.4 g/dl (6.4-8.2)
[2021-05-15] MEDS: NIFEdipine E.R. 30 MG TABLET PO SCH (12:37)
[2021-05-15] MEDS: LOSARTAN POTASSIUM 50 MG TABLET PO SCH (12:37)
[2021-05-15] MEDS: NICOTINE 21 MG/24 HOURS TOPICAL PATCH TD SCH (12:38)
[2021-05-15] MEDS: PRENATAL VITAMINS W/ FOLIC ACID TABLET (FP) PO SCH (12:38)
[2021-05-15] MEDS: METHOCARBAMOL 500 MG TABLET PO PRN ×2 (12:39→18:04)
[2021-05-15] MEDS: cloNIDine HCL 0.1 MG TABLET PO SCH ×2 (14:26→22:44)
[2021-05-15] MEDS: clonazePAM 0.5 MG ODT TABLETS SL PRN (14:26)
[2021-05-15] MEDS: ALBUTEROL SO4 HFA INHALER IH PRN (18:07)
[2021-05-15] MEDS: MELATONIN 5 MG TABLETS PO SCH (22:48)
[2021-05-15] MEDS: SENNOSIDES 8.6MG TABLET (FP) PO SCH (22:48)
[2021-05-15] MEDS: THIAMINE HCL 100 MG TABLET (FP) PO SCH (22:48)
[2021-05-15] MEDS: ATORVASTATIN CA 40 MG TABLET (FP) PO SCH (22:48)
[2021-05-15] MEDS: LITHIUM CARBONATE 300 MG CAPSULE PO SCH (22:48)
[2021-05-16] MEDS: metFORMIN HCL 500 MG TABLET (FP) PO SCH ×2 (07:16→17:25)
[2021-05-16] MEDS ORDERED: methaDONE HCL 10 MG TABLET (FOR DETOX USE ONLY) ONE (08:34)
[2021-05-16] MEDS: NIFEdipine E.R. 30 MG TABLET PO SCH (10:16)
[2021-05-16] MEDS: PRENATAL VITAMINS W/ FOLIC ACID TABLET (FP) PO SCH (10:17)
[2021-05-16] MEDS: cloNIDine HCL 0.1 MG TABLET PO SCH ×2 (10:17→22:56)
[2021-05-16] MEDS: LOSARTAN POTASSIUM 50 MG TABLET PO SCH (10:17)
[2021-05-16] MEDS: NICOTINE 21 MG/24 HOURS TOPICAL PATCH TD SCH (10:36)
[2021-05-16] MEDS: MELATONIN 5 MG TABLETS PO SCH (22:56)
[2021-05-16] MEDS: SENNOSIDES 8.6MG TABLET (FP) PO SCH (22:56)
[2021-05-16] MEDS: ATORVASTATIN CA 40 MG TABLET (FP) PO SCH (22:56)
[2021-05-16] MEDS: LITHIUM CARBONATE 300 MG CAPSULE PO SCH (22:56)
[2021-05-16] MEDS: THIAMINE HCL 100 MG TABLET (FP) PO SCH (22:56)
[2021-05-17] MEDS: METHOCARBAMOL 500 MG TABLET PO PRN ×2 (00:15→22:41)
[2021-05-17] MEDS: IBUPROFEN 400 MG TABLET (FP) PO PRN (00:15)
[2021-05-17] MEDS: ACETAMINOPHEN 325 MG TABLET (FP) PO PRN (02:32)
[2021-05-17] MEDS: clonazePAM 0.5 MG ODT TABLETS SL PRN (02:35)
[2021-05-17] MEDS: SULFAMETHOXAZOLE/TRIMETHOPRIM 800MG/160MG D.S. TABLET PO SCH ×2 (05:59→18:31)
[2021-05-17] MEDS: metFORMIN HCL 500 MG TABLET (FP) PO SCH ×2 (07:56→18:31)
[2021-05-17 09:19] LABS: EPI CELLS >36 /uL (0-25.1); HYALINE CASTS 2 /uL (0-3.1); URINE APPEARANCE CLEAR; URINE BACTERIA 619 /uL (0-1359); URINE BILIRUBIN NEGATIVE (NEGATIVE); URINE COLOR YELLOW; URINE GLUCOSE (UA) NEGATIVE (NEGATIVE); URINE KETONE TRACE (NEGATIVE); URINE LEUK ESTERASE TRACE (NEGATIVE); URINE NITRITE NEGATIVE (NEGATIVE); URINE PROTEIN NEGATIVE (NEGATIVE); URINE RBC 2 /uL (0-23.9); URINE UROBILINOGEN 0.2 mg/dL (0.2-1.0); URINE WBC 27 /uL (0-25.8)
[2021-05-17] MEDS ORDERED: methaDONE HCL 10 MG TABLET (FOR DETOX USE ONLY) PO ONE (10:00)
[2021-05-17] MEDS: PRENATAL VITAMINS W/ FOLIC ACID TABLET (FP) PO SCH (10:13)
[2021-05-17] MEDS: LOSARTAN POTASSIUM 50 MG TABLET PO SCH (10:13)
[2021-05-17] MEDS: NIFEdipine E.R. 30 MG TABLET PO SCH (10:13)
[2021-05-17] MEDS: cloNIDine HCL 0.1 MG TABLET PO SCH ×2 (10:13→22:40)
[2021-05-17] MEDS: NICOTINE 21 MG/24 HOURS TOPICAL PATCH TD SCH (10:16)
[2021-05-17] MEDS: SENNOSIDES 8.6MG TABLET (FP) PO SCH (22:40)
[2021-05-17] MEDS: ALBUTEROL SO4 HFA INHALER IH PRN (22:40)
[2021-05-17] MEDS: LITHIUM CARBONATE 300 MG CAPSULE PO SCH (22:40)
[2021-05-17] MEDS: ATORVASTATIN CA 40 MG TABLET (FP) PO SCH (22:41)
[2021-05-17] MEDS: THIAMINE HCL 100 MG TABLET (FP) PO SCH (22:41)
[2021-05-17] MEDS: MELATONIN 5 MG TABLETS PO SCH (22:42)
[2021-05-18] MEDS: ACETAMINOPHEN 325 MG TABLET (FP) PO PRN (03:47)
[2021-05-18] MEDS: clonazePAM 0.5 MG ODT TABLETS SL PRN (03:48)
[2021-05-18] MEDS: SULFAMETHOXAZOLE/TRIMETHOPRIM 800MG/160MG D.S. TABLET PO SCH ×2 (05:40→18:14)
[2021-05-18] MEDS: metFORMIN HCL 500 MG TABLET (FP) PO SCH ×2 (06:06→16:56)
[2021-05-18] MEDS ORDERED: methaDONE HCL 10 MG TABLET (FOR DETOX USE ONLY) ONE (09:20)
[2021-05-18] MEDS: LOSARTAN POTASSIUM 50 MG TABLET PO SCH (10:08)
[2021-05-18] MEDS: NIFEdipine E.R. 30 MG TABLET PO SCH (10:08)
[2021-05-18] MEDS: PRENATAL VITAMINS W/ FOLIC ACID TABLET (FP) PO SCH (10:08)
[2021-05-18] MEDS: cloNIDine HCL 0.1 MG TABLET PO SCH ×2 (10:08→22:13)
[2021-05-18] MEDS: NICOTINE 21 MG/24 HOURS TOPICAL PATCH TD SCH (11:05)
[2021-05-18] MEDS: METHOCARBAMOL 500 MG TABLET PO PRN ×2 (11:58→22:14)
[2021-05-18] MEDS: IBUPROFEN 400 MG TABLET (FP) PO PRN (11:58)
[2021-05-18] MEDS ORDERED: DOCUSATE SODIUM 100 MG CAPSULE (FP) PO PRN (13:59)
[2021-05-18] MEDS: SENNOSIDES 8.6MG TABLET (FP) PO SCH (22:13)
[2021-05-18] MEDS: LITHIUM CARBONATE 300 MG CAPSULE PO SCH (22:13)
[2021-05-18] MEDS: THIAMINE HCL 100 MG TABLET (FP) PO SCH (22:13)
[2021-05-18] MEDS: MELATONIN 5 MG TABLETS PO SCH (22:13)
[2021-05-18] MEDS: ATORVASTATIN CA 40 MG TABLET (FP) PO SCH (22:13)
[2021-05-19] MEDS: metFORMIN HCL 500 MG TABLET (FP) PO SCH ×2 (06:00→17:42)
[2021-05-19] MEDS: SULFAMETHOXAZOLE/TRIMETHOPRIM 800MG/160MG D.S. TABLET PO SCH ×2 (06:00→17:42)
[2021-05-19] MEDS ORDERED: methaDONE HCL 10 MG TABLET (FOR DETOX USE ONLY) PO ONE (10:00)
[2021-05-19] MEDS: METHOCARBAMOL 500 MG TABLET PO PRN (10:08)
[2021-05-19] MEDS: NICOTINE 21 MG/24 HOURS TOPICAL PATCH TD SCH (10:08)
[2021-05-19] MEDS: LOSARTAN POTASSIUM 50 MG TABLET PO SCH (10:08)
[2021-05-19] MEDS: NIFEdipine E.R. 30 MG TABLET PO SCH (10:08)
[2021-05-19] MEDS: cloNIDine HCL 0.1 MG TABLET PO SCH ×2 (10:08→22:16)
[2021-05-19] MEDS: PRENATAL VITAMINS W/ FOLIC ACID TABLET (FP) PO SCH (10:09)
[2021-05-19] MEDS: SENNOSIDES 8.6MG TABLET (FP) PO SCH (22:15)
[2021-05-19] MEDS: ATORVASTATIN CA 40 MG TABLET (FP) PO SCH (22:16)
[2021-05-19] MEDS: LITHIUM CARBONATE 300 MG CAPSULE PO SCH (22:16)
[2021-05-19] MEDS: MELATONIN 5 MG TABLETS PO SCH (22:16)
[2021-05-19] MEDS: THIAMINE HCL 100 MG TABLET (FP) PO SCH (22:17)
[2021-05-20] MEDS: METHOCARBAMOL 500 MG TABLET PO PRN (00:55)
[2021-05-20] MEDS: IBUPROFEN 400 MG TABLET (FP) PO PRN (00:55)
[2021-05-20] MEDS: metFORMIN HCL 500 MG TABLET (FP) PO SCH (06:25)
[2021-05-20] MEDS: SULFAMETHOXAZOLE/TRIMETHOPRIM 800MG/160MG D.S. TABLET PO SCH (06:25)
[2021-05-20 08:56] VITALS: BP 146/74; PULSE 52; TEMP 97.1
== END 2021-05-20 09:13 | disposition home or self-care (01) | DRG 773 ==
LOC: YASAS 12:31 → Y3N 17:43 → UNDOADMIN 17:43 → Y3N 18:08
PROVIDERS: ADMIT Allergy & Immunology; ATTEND Allergy & Immunology
PROC: HZ2ZZZZ Detoxification Services for Substance Abuse Treatment (ICD-10-PCS; principal; 2021-05-14)
DX: F11.23 Opioid dependence with withdrawal (principal); F14.20 Cocaine dependence, uncomplicated; F17.210 Nicotine dependence, cigarettes, uncomplicated; F31.9 Bipolar disorder, unspecified; F19.24 Other psychoactive substance dependence with psychoactive substance-induced mood disorder; D72.829 Elevated white blood cell count, unspecified; E88.09 Other disorders of plasma-protein metabolism, not elsewhere classified; E78.5 Hyperlipidemia, unspecified; E11.9 Type 2 diabetes mellitus without complications; Z79.84 Long term (current) use of oral hypoglycemic drugs; I10 Essential (primary) hypertension; K59.00 Constipation, unspecified; N39.0 Urinary tract infection, site not specified; R10.30 Lower abdominal pain, unspecified; R79.89 Other specified abnormal findings of blood chemistry; Z86.79 Personal history of other diseases of the circulatory system; Z88.8 Allergy status to other drugs, medicaments and biological substances; Z88.0 Allergy status to penicillin; Z91.018 Allergy to other foods; Z99.89 Dependence on other enabling machines and devices; Z56.0 Unemployment, unspecified; Z59.01 Sheltered homelessness
CPT/HCPCS: 36415; 80053; 80178; 81003; 82962; 85027; 86780; 93005; 93010; C9803; J0735; U0003; U0005

== ENCOUNTER 2021-05-17 12:01 | Emergency (ER) | payer OTHER ==
[2021-05-17 12:27] VITALS: BMI 33.6
[2021-05-17] MEDS ORDERED: ACETAMINOPHEN 1000 MG/100 ML VIAL IVPB ONE (13:02)
[2021-05-17] MEDS ORDERED: ACETAMINOPHEN INJECTION 100 ML IVPB ONE (13:10)
[2021-05-17 13:38] LABS: BASO % 1.9 % (0-2.0); EOS % 1.8 % (0-4.5); HEMATOCRIT 41.1 % (32.4-45.2); HEMOGLOBIN 14.5 GM/dL (10.7-15.3); MCH 30.5 pg (25.7-33.7); MCHC 35.3 g/dl (32.0-36.0); MEAN CELL VOLUME 86.3 fl (80-96); MEAN PLT VOLUME 8.6 fl (7.5-11.1); MONO % 5.6 % (3.8-10.2); NEUT % 63.7 % (42.8-82.8); PLATELET COUNT 267 10^3/uL (134-434); RBC 4.77 M/mm3 (3.60-5.2); RDW 13.4 % (11.6-15.6); WHITE BLOOD COUNT 12.3 K/mm3 (4.0-10.0)
[2021-05-17 14:00] LABS: CALCIUM 9.8 mg/dL (8.5-10.1)
[2021-05-17 14:02] LABS: BLOOD UREA NITROGEN 26.3 mg/dL (7-18)
[2021-05-17 14:05] LABS: CREATININE 0.9 mg/dL (0.55-1.3)
[2021-05-17 14:06] LABS: BILIRUBIN,TOTAL 0.2 mg/dL (0.2-1); TOT PROT 7.3 g/dl (6.4-8.2)
[2021-05-17 14:15] LABS: ALBUMIN 3.3 g/dl (3.4-5.0)
[2021-05-17 14:46] LABS: PH,URINE 6.5 (5.0-8.0); URINE APPEARANCE CLEAR; URINE BILIRUBIN NEGATIVE (NEGATIVE); URINE COLOR DK YELLOW; URINE GLUCOSE (UA) NEGATIVE (NEGATIVE); URINE KETONE TRACE (NEGATIVE); URINE LEUK ESTERASE NEGATIVE (NEGATIVE); URINE NITRITE NEGATIVE (NEGATIVE); URINE PROTEIN NEGATIVE (NEGATIVE); URINE UROBILINOGEN 0.2 mg/dL (0.2-1.0)
[2021-05-17 16:12] LABS: CALCIUM 9.2 mg/dL (8.5-10.1)
[2021-05-17 16:13] LABS: BLOOD UREA NITROGEN 25.9 mg/dL (7-18)
[2021-05-17 16:16] LABS: CREATININE 0.8 mg/dL (0.55-1.3)
[2021-05-17 17:57] VITALS: BP 113/59; PULSE 55; TEMP 98.5
== END 2021-05-17 21:28 | disposition home or self-care (01) ==
LOC: JER 12:01
PROC: 3E0333Z Introduction of Anti-inflammatory into Peripheral Vein, Percutaneous Approach (ICD-10-PCS; principal; 2021-05-17)
DX: K59.00 Constipation, unspecified (principal)
CPT/HCPCS: 36415; 74177-TC; 80048; 80053; 81003; 85025; 87086; 99285-25; J0131; Q9967

== ENCOUNTER 2021-06-13 10:36 | Inpatient (IN) | payer OTHER ==
[2021-06-13] MEDS ORDERED: MAGNESIUM CITRATE 300 ML BOTTLE PO PRN (11:20)
[2021-06-13] MEDS ORDERED: NICOTINE 10 MG CARTRIDGE (INHALER) IH PRN (11:20)
[2021-06-13] MEDS ORDERED: ACETAMINOPHEN 325 MG TABLET (FP) PO PRN (11:20)
[2021-06-13] MEDS ORDERED: cloNIDine HCL 0.1 MG TABLET PO PRN (11:20)
[2021-06-13] MEDS ORDERED: MENTHOL/PHENOL 1 EACH UD MM PRN (11:20)
[2021-06-13] MEDS ORDERED: ONDANSETRON *ODT* 4 MG TABLET SL PRN (11:20)
[2021-06-13] MEDS ORDERED: MAGNESIUM HYDROX 2400MG/30ML ORAL SUSPENSION 30 ML CUP PO PRN (11:20)
[2021-06-13] MEDS ORDERED: MAG HYDROX/AL HYDROX/SIMETH 30 ML UNIT-DOSE CUP PO PRN (11:20)
[2021-06-13] MEDS ORDERED: BISMUTH SUBSALICYLATE 524 MG/30 ML PO PRN (11:20)
[2021-06-13 11:27] VITALS: BMI 32.9
[2021-06-13] MEDS ORDERED: ALBUTEROL SO4 HFA INHALER IH PRN (11:29)
[2021-06-13] MEDS ORDERED: methaDONE HCL 10 MG TABLET (FOR DETOX USE ONLY) PO ONE (11:45)
[2021-06-13] MEDS: PRENATAL VITAMINS W/ FOLIC ACID TABLET (FP) PO SCH (12:14)
[2021-06-13] MEDS: hydrOXYzine PAMOATE 25 MG CAPSULE (FP) PO SCH ×3 (13:12→23:36)
[2021-06-13] MEDS: TRIAMCINOLONE ACET 0.1% CREAM 15 GM TUBE TP SCH ×3 (13:18→23:37)
[2021-06-13 16:44] LABS: HEMATOCRIT 38.5 % (32.4-45.2); HEMOGLOBIN 13.2 GM/dL (10.7-15.3); MCH 30.2 pg (25.7-33.7); MCHC 34.2 g/dl (32.0-36.0); MEAN CELL VOLUME 88.4 fl (80-96); PLATELET COUNT 213 10^3/uL (134-434); RBC 4.36 M/mm3 (3.60-5.2); RDW 13.7 % (11.6-15.6); WHITE BLOOD COUNT 10.2 K/mm3 (4.0-10.0)
[2021-06-13 16:49] LABS: CALCIUM 8.9 mg/dL (8.5-10.1)
[2021-06-13 16:50] LABS: ALBUMIN 3.4 g/dl (3.4-5.0); BLOOD UREA NITROGEN 24.2 mg/dL (7-18)
[2021-06-13 16:53] LABS: CREATININE 1.1 mg/dL (0.55-1.3)
[2021-06-13 16:54] LABS: BILIRUBIN,TOTAL 0.2 mg/dL (0.2-1)
[2021-06-13] MEDS: metFORMIN HCL 500 MG TABLET (FP) PO SCH (17:52)
[2021-06-13] MEDS ORDERED: MELATONIN 5 MG TABLETS PO SCH (22:00)
[2021-06-13] MEDS: LITHIUM CARBONATE 300 MG CAPSULE PO SCH (23:36)
[2021-06-13] MEDS: METHOCARBAMOL 500 MG TABLET PO PRN (23:36)
[2021-06-13] MEDS: THIAMINE HCL 100 MG TABLET (FP) PO SCH (23:36)
[2021-06-13] MEDS: ATORVASTATIN CA 40 MG TABLET (FP) PO SCH (23:36)
[2021-06-14] MEDS: metFORMIN HCL 500 MG TABLET (FP) PO SCH ×2 (06:30→17:11)
[2021-06-14] MEDS: hydrOXYzine PAMOATE 25 MG CAPSULE (FP) PO SCH ×5 (06:31→22:46)
[2021-06-14] MEDS ORDERED: methaDONE HCL 10 MG TABLET (FOR DETOX USE ONLY) ONE (09:52)
[2021-06-14] MEDS: NIFEdipine E.R. 90 MG TABLET PO SCH (11:00)
[2021-06-14] MEDS: METHOCARBAMOL 500 MG TABLET PO PRN (11:00)
[2021-06-14] MEDS: TRIAMCINOLONE ACET 0.1% CREAM 15 GM TUBE TP SCH ×4 (11:00→22:56)
[2021-06-14] MEDS: PRENATAL VITAMINS W/ FOLIC ACID TABLET (FP) PO SCH (11:02)
[2021-06-14] MEDS: LOSARTAN POTASSIUM 50 MG TABLET PO SCH (12:32)
[2021-06-14] MEDS: THIAMINE HCL 100 MG TABLET (FP) PO SCH (22:45)
[2021-06-14] MEDS: LITHIUM CARBONATE 300 MG CAPSULE PO SCH (22:45)
[2021-06-14] MEDS: ATORVASTATIN CA 40 MG TABLET (FP) PO SCH (22:46)
[2021-06-14] MEDS: SUVOREXANT 10 MG TABLET PO PRN (22:52)
[2021-06-15] MEDS: ACETAMINOPHEN 325 MG TABLET (FP) PO PRN (01:53)
[2021-06-15] MEDS: IBUPROFEN 400 MG TABLET (FP) PO PRN (03:57)
[2021-06-15] MEDS: METHOCARBAMOL 500 MG TABLET PO PRN ×3 (04:00→20:09)
[2021-06-15] MEDS: hydrOXYzine PAMOATE 25 MG CAPSULE (FP) PO SCH ×5 (06:07→22:17)
[2021-06-15] MEDS: metFORMIN HCL 500 MG TABLET (FP) PO SCH ×2 (06:08→17:11)
[2021-06-15] MEDS ORDERED: methaDONE HCL 10 MG TABLET (FOR DETOX USE ONLY) PO ONE (10:00)
[2021-06-15] MEDS: LOSARTAN POTASSIUM 50 MG TABLET PO SCH (10:59)
[2021-06-15] MEDS: PRENATAL VITAMINS W/ FOLIC ACID TABLET (FP) PO SCH (10:59)
[2021-06-15] MEDS: NIFEdipine E.R. 90 MG TABLET PO SCH (11:00)
[2021-06-15] MEDS: TRIAMCINOLONE ACET 0.1% CREAM 15 GM TUBE TP SCH ×4 (11:00→22:18)
[2021-06-15 18:28] LABS: URINE APPEARANCE CLEAR; URINE BILIRUBIN NEGATIVE (NEGATIVE); URINE COLOR YELLOW; URINE GLUCOSE (UA) NEGATIVE (NEGATIVE); URINE KETONE NEGATIVE (NEGATIVE); URINE LEUK ESTERASE NEGATIVE (NEGATIVE); URINE NITRITE NEGATIVE (NEGATIVE); URINE PROTEIN NEGATIVE (NEGATIVE); URINE UROBILINOGEN 0.2 mg/dL (0.2-1.0)
[2021-06-15] MEDS: SUVOREXANT 10 MG TABLET PO PRN (22:16)
[2021-06-15] MEDS: LITHIUM CARBONATE 300 MG CAPSULE PO SCH (22:17)
[2021-06-15] MEDS: THIAMINE HCL 100 MG TABLET (FP) PO SCH (22:17)
[2021-06-15] MEDS: ATORVASTATIN CA 40 MG TABLET (FP) PO SCH (22:17)
[2021-06-16] MEDS: METHOCARBAMOL 500 MG TABLET PO PRN ×2 (04:40→19:21)
[2021-06-16] MEDS: hydrOXYzine PAMOATE 25 MG CAPSULE (FP) PO SCH ×5 (06:49→22:41)
[2021-06-16] MEDS: metFORMIN HCL 500 MG TABLET (FP) PO SCH ×2 (06:49→17:00)
[2021-06-16] MEDS ORDERED: methaDONE HCL 10 MG TABLET (FOR DETOX USE ONLY) ONE (09:59)
[2021-06-16] MEDS: IBUPROFEN 400 MG TABLET (FP) PO PRN (10:54)
[2021-06-16] MEDS: NIFEdipine E.R. 90 MG TABLET PO SCH (10:56)
[2021-06-16] MEDS: LOSARTAN POTASSIUM 50 MG TABLET PO SCH (10:56)
[2021-06-16] MEDS: PRENATAL VITAMINS W/ FOLIC ACID TABLET (FP) PO SCH (10:56)
[2021-06-16] MEDS: TRIAMCINOLONE ACET 0.1% CREAM 15 GM TUBE TP SCH ×4 (10:57→22:41)
[2021-06-16] MEDS: ATORVASTATIN CA 40 MG TABLET (FP) PO SCH (22:41)
[2021-06-16] MEDS: THIAMINE HCL 100 MG TABLET (FP) PO SCH (22:42)
[2021-06-16] MEDS: LITHIUM CARBONATE 300 MG CAPSULE PO SCH (22:42)
[2021-06-16] MEDS ORDERED: SUVOREXANT 10 MG TABLET PO PRN (22:47)
[2021-06-17] MEDS: hydrOXYzine PAMOATE 25 MG CAPSULE (FP) PO SCH ×5 (06:03→21:30)
[2021-06-17] MEDS: metFORMIN HCL 500 MG TABLET (FP) PO SCH ×2 (06:04→17:13)
[2021-06-17] MEDS: METHOCARBAMOL 500 MG TABLET PO PRN ×2 (07:28→21:30)
[2021-06-17] MEDS ORDERED: methaDONE HCL 10 MG TABLET (FOR DETOX USE ONLY) PO ONE (10:00)
[2021-06-17] MEDS: LOSARTAN POTASSIUM 50 MG TABLET PO SCH (10:24)
[2021-06-17] MEDS: NIFEdipine E.R. 90 MG TABLET PO SCH (10:24)
[2021-06-17] MEDS: PRENATAL VITAMINS W/ FOLIC ACID TABLET (FP) PO SCH (10:25)
[2021-06-17] MEDS: ACETAMINOPHEN 325 MG TABLET (FP) PO PRN (10:25)
[2021-06-17] MEDS: TRIAMCINOLONE ACET 0.1% CREAM 15 GM TUBE TP SCH ×4 (10:25→21:31)
[2021-06-17] MEDS: ATORVASTATIN CA 40 MG TABLET (FP) PO SCH (21:30)
[2021-06-17] MEDS: IBUPROFEN 400 MG TABLET (FP) PO PRN (21:31)
[2021-06-17] MEDS: THIAMINE HCL 100 MG TABLET (FP) PO SCH (21:31)
[2021-06-17] MEDS: LITHIUM CARBONATE 300 MG CAPSULE PO SCH (21:31)
[2021-06-18] MEDS: hydrOXYzine PAMOATE 25 MG CAPSULE (FP) PO SCH (05:34)
[2021-06-18] MEDS: metFORMIN HCL 500 MG TABLET (FP) PO SCH (06:44)
[2021-06-18 09:48] VITALS: BP 141/61; PULSE 71; TEMP 97.5
== END 2021-06-18 09:40 | disposition home or self-care (01) | DRG 773 ==
LOC: YASAS 10:36 → Y6N 11:37
PROVIDERS: ADMIT Allergy & Immunology; ATTEND Allergy & Immunology
PROC: HZ2ZZZZ Detoxification Services for Substance Abuse Treatment (ICD-10-PCS; principal; 2021-06-13)
DX: F11.23 Opioid dependence with withdrawal (principal); F17.210 Nicotine dependence, cigarettes, uncomplicated; F31.81 Bipolar II disorder; F19.282 Other psychoactive substance dependence with psychoactive substance-induced sleep disorder; I10 Essential (primary) hypertension; E11.9 Type 2 diabetes mellitus without complications; J45.20 Mild intermittent asthma, uncomplicated; E78.1 Pure hyperglyceridemia; L40.9 Psoriasis, unspecified; M51.26 Other intervertebral disc displacement, lumbar region; E66.09 Other obesity due to excess calories; Z68.32 Body mass index [BMI] 32.0-32.9, adult; Z88.0 Allergy status to penicillin; Z88.8 Allergy status to other drugs, medicaments and biological substances; Z91.018 Allergy to other foods; Z97.0 Presence of artificial eye; Z86.79 Personal history of other diseases of the circulatory system; Z79.84 Long term (current) use of oral hypoglycemic drugs; Z56.0 Unemployment, unspecified; Z59.01 Sheltered homelessness
CPT/HCPCS: 36415; 80053; 81003; 82962; 85027; 86780; C9803; J0735; U0003; U0005

== ENCOUNTER 2021-07-25 13:24 | Inpatient (IN) | payer OTHER ==
[2021-07-25] MEDS ORDERED: ACETAMINOPHEN 325 MG TABLET (FP) PO PRN ×2 (14:25)
[2021-07-25] MEDS ORDERED: cloNIDine HCL 0.1 MG TABLET PO PRN (14:25)
[2021-07-25] MEDS ORDERED: MAGNESIUM CITRATE 300 ML BOTTLE PO PRN (14:25)
[2021-07-25] MEDS ORDERED: MAGNESIUM HYDROX 2400MG/30ML ORAL SUSPENSION 30 ML CUP PO PRN (14:25)
[2021-07-25] MEDS ORDERED: BISMUTH SUBSALICYLATE 524 MG/30 ML PO PRN (14:25)
[2021-07-25] MEDS ORDERED: MENTHOL/PHENOL 1 EACH UD MM PRN (14:25)
[2021-07-25] MEDS ORDERED: IBUPROFEN 400 MG TABLET (FP) PO PRN (14:25)
[2021-07-25] MEDS ORDERED: MAG HYDROX/AL HYDROX/SIMETH 30 ML UNIT-DOSE CUP PO PRN (14:25)
[2021-07-25] MEDS ORDERED: ONDANSETRON *ODT* 4 MG TABLET SL PRN (14:25)
[2021-07-25] MEDS ORDERED: methaDONE HCL 10 MG TABLET (FOR DETOX USE ONLY) PO ONE (16:15)
[2021-07-25 16:46] VITALS: BMI 71.1
[2021-07-25] MEDS: hydrOXYzine PAMOATE 25 MG CAPSULE (FP) PO SCH ×2 (18:39→22:27)
[2021-07-25] MEDS ORDERED: MELATONIN 5 MG TABLETS PO SCH (22:00)
[2021-07-25] MEDS: THIAMINE HCL 100 MG TABLET (FP) PO SCH (22:27)
[2021-07-25] MEDS: metFORMIN HCL 500 MG TABLET (FP) PO SCH (22:27)
[2021-07-25] MEDS: ATORVASTATIN CA 40 MG TABLET (FP) PO SCH (22:27)
[2021-07-25] MEDS: METHOCARBAMOL 500 MG TABLET PO PRN (22:30)
[2021-07-26] MEDS: hydrOXYzine PAMOATE 25 MG CAPSULE (FP) PO SCH ×5 (05:26→23:14)
[2021-07-26] MEDS: ALBUTEROL SO4 HFA INHALER IH PRN ×2 (05:29→10:43)
[2021-07-26] MEDS: METHOCARBAMOL 500 MG TABLET PO PRN ×3 (05:29→17:05)
[2021-07-26] MEDS ORDERED: methaDONE HCL 10 MG TABLET (FOR DETOX USE ONLY) ONE (09:49)
[2021-07-26] MEDS: PRENATAL VITAMINS W/ FOLIC ACID TABLET (FP) PO SCH (10:43)
[2021-07-26] MEDS: metFORMIN HCL 500 MG TABLET (FP) PO SCH ×2 (10:44→23:13)
[2021-07-26] MEDS: NIFEdipine E.R. 90 MG TABLET PO SCH (10:44)
[2021-07-26] MEDS: LOSARTAN POTASSIUM 50 MG TABLET PO SCH (10:46)
[2021-07-26 11:57] LABS: CALCIUM 9.4 mg/dL (8.5-10.1)
[2021-07-26 11:58] LABS: ALBUMIN 3.5 g/dl (3.4-5.0); BLOOD UREA NITROGEN 19.3 mg/dL (7-18); HEMATOCRIT 40.3 % (32.4-45.2); HEMOGLOBIN 13.6 GM/dL (10.7-15.3); MCH 30.1 pg (25.7-33.7); MCHC 33.7 g/dl (32.0-36.0); MEAN CELL VOLUME 89.3 fl (80-96); MEAN PLT VOLUME 8.9 fl (7.5-11.1); PLATELET COUNT 233 10^3/uL (134-434); RBC 4.52 M/mm3 (3.60-5.2); RDW 14.1 % (11.6-15.6); WHITE BLOOD COUNT 9.3 K/mm3 (4.0-10.0)
[2021-07-26 12:01] LABS: CREATININE 0.9 mg/dL (0.55-1.3)
[2021-07-26 12:03] LABS: BILIRUBIN,TOTAL 0.3 mg/dL (0.2-1); TOT PROT 6.7 g/dl (6.4-8.2)
[2021-07-26] MEDS ORDERED: SUVOREXANT 10 MG TABLET PO PRN (22:00)
[2021-07-26] MEDS: LITHIUM CARBONATE 300 MG CAPSULE PO SCH (23:13)
[2021-07-26] MEDS: THIAMINE HCL 100 MG TABLET (FP) PO SCH (23:13)
[2021-07-26] MEDS: ATORVASTATIN CA 40 MG TABLET (FP) PO SCH (23:13)
[2021-07-27] MEDS: hydrOXYzine PAMOATE 25 MG CAPSULE (FP) PO SCH ×5 (06:44→22:22)
[2021-07-27] MEDS ORDERED: methaDONE HCL 10 MG TABLET (FOR DETOX USE ONLY) PO ONE (10:00)
[2021-07-27] MEDS: PRENATAL VITAMINS W/ FOLIC ACID TABLET (FP) PO SCH (10:15)
[2021-07-27] MEDS: metFORMIN HCL 500 MG TABLET (FP) PO SCH ×2 (10:15→22:22)
[2021-07-27] MEDS: ALBUTEROL SO4 HFA INHALER IH PRN (10:16)
[2021-07-27] MEDS: NIFEdipine E.R. 90 MG TABLET PO SCH (10:16)
[2021-07-27] MEDS: LOSARTAN POTASSIUM 50 MG TABLET PO SCH (10:16)
[2021-07-27] MEDS: METHOCARBAMOL 500 MG TABLET PO PRN ×2 (10:16→22:22)
[2021-07-27] MEDS: NICOTINE 10 MG CARTRIDGE (INHALER) IH PRN (13:40)
[2021-07-27] MEDS: diazePAM 5 MG TABLET PO PRN (17:30)
[2021-07-27] MEDS ORDERED: SUVOREXANT 15 MG TABLET PO PRN (22:00)
[2021-07-27] MEDS: THIAMINE HCL 100 MG TABLET (FP) PO SCH (22:23)
[2021-07-27] MEDS: ATORVASTATIN CA 40 MG TABLET (FP) PO SCH (22:23)
[2021-07-27] MEDS: LITHIUM CARBONATE 300 MG CAPSULE PO SCH (23:40)
[2021-07-28] MEDS: diazePAM 5 MG TABLET PO PRN ×2 (03:25→10:31)
[2021-07-28] MEDS: hydrOXYzine PAMOATE 25 MG CAPSULE (FP) PO SCH ×5 (06:26→22:22)
[2021-07-28] MEDS ORDERED: methaDONE HCL 10 MG TABLET (FOR DETOX USE ONLY) ONE (09:52)
[2021-07-28] MEDS: PRENATAL VITAMINS W/ FOLIC ACID TABLET (FP) PO SCH (10:29)
[2021-07-28] MEDS: metFORMIN HCL 500 MG TABLET (FP) PO SCH ×2 (10:29→22:21)
[2021-07-28] MEDS: LOSARTAN POTASSIUM 50 MG TABLET PO SCH (10:29)
[2021-07-28] MEDS: METHOCARBAMOL 500 MG TABLET PO PRN (10:30)
[2021-07-28] MEDS: NIFEdipine E.R. 90 MG TABLET PO SCH (10:30)
[2021-07-28] MEDS: ALBUTEROL SO4 HFA INHALER IH PRN (10:30)
[2021-07-28] MEDS: IBUPROFEN 600 MG TABLET (FP) PO PRN (14:22)
[2021-07-28] MEDS: THIAMINE HCL 100 MG TABLET (FP) PO SCH (22:21)
[2021-07-28] MEDS: LITHIUM CARBONATE 300 MG CAPSULE PO SCH (22:22)
[2021-07-28] MEDS: ATORVASTATIN CA 40 MG TABLET (FP) PO SCH (22:22)
[2021-07-29] MEDS: hydrOXYzine PAMOATE 25 MG CAPSULE (FP) PO SCH ×5 (05:56→22:20)
[2021-07-29] MEDS ORDERED: methaDONE HCL 10 MG TABLET (FOR DETOX USE ONLY) PO ONE (10:00)
[2021-07-29] MEDS: PRENATAL VITAMINS W/ FOLIC ACID TABLET (FP) PO SCH (10:06)
[2021-07-29] MEDS: NIFEdipine E.R. 90 MG TABLET PO SCH (10:07)
[2021-07-29] MEDS: diazePAM 5 MG TABLET PO PRN ×2 (10:07→17:28)
[2021-07-29] MEDS: LOSARTAN POTASSIUM 50 MG TABLET PO SCH (10:07)
[2021-07-29] MEDS: metFORMIN HCL 500 MG TABLET (FP) PO SCH ×2 (10:07→22:18)
[2021-07-29] MEDS: ALBUTEROL SO4 HFA INHALER IH PRN (10:07)
[2021-07-29] MEDS: NICOTINE 10 MG CARTRIDGE (INHALER) IH PRN (12:13)
[2021-07-29] MEDS: IBUPROFEN 600 MG TABLET (FP) PO PRN (14:42)
[2021-07-29] MEDS: THIAMINE HCL 100 MG TABLET (FP) PO SCH (22:18)
[2021-07-29] MEDS: LITHIUM CARBONATE 300 MG CAPSULE PO SCH (22:18)
[2021-07-29] MEDS: ATORVASTATIN CA 40 MG TABLET (FP) PO SCH (22:18)
[2021-07-30] MEDS: hydrOXYzine PAMOATE 25 MG CAPSULE (FP) PO SCH (05:24)
[2021-07-30] MEDS: metFORMIN HCL 500 MG TABLET (FP) PO SCH (09:26)
[2021-07-30] MEDS: NIFEdipine E.R. 90 MG TABLET PO SCH (09:27)
[2021-07-30] MEDS: LOSARTAN POTASSIUM 50 MG TABLET PO SCH (09:27)
[2021-07-30 09:45] VITALS: BP 128/85; PULSE 72; TEMP 97.3
[2021-07-30] MEDS ORDERED: MODERNA COVID-19 VACC,MRNA/PF 50 MCG/0.25 ML EACH IM ONE (10:00)
== END 2021-07-30 09:31 | disposition home or self-care (01) | DRG 773 ==
LOC: YASAS 13:24 → Y6N 15:53
PROVIDERS: ADMIT Allergy & Immunology; ATTEND Allergy & Immunology
PROC: HZ2ZZZZ Detoxification Services for Substance Abuse Treatment (ICD-10-PCS; principal; 2021-07-25)
DX: F11.23 Opioid dependence with withdrawal (principal); F14.20 Cocaine dependence, uncomplicated; F17.210 Nicotine dependence, cigarettes, uncomplicated; F31.77 Bipolar disorder, in partial remission, most recent episode mixed; I10 Essential (primary) hypertension; E78.5 Hyperlipidemia, unspecified; E11.9 Type 2 diabetes mellitus without complications; Z79.84 Long term (current) use of oral hypoglycemic drugs; J45.20 Mild intermittent asthma, uncomplicated; L40.9 Psoriasis, unspecified; E66.01 Morbid (severe) obesity due to excess calories; Z99.89 Dependence on other enabling machines and devices; Z68.45 Body mass index [BMI] 70 or greater, adult; Z91.410 Personal history of adult physical and sexual abuse; Z97.0 Presence of artificial eye; Z86.79 Personal history of other diseases of the circulatory system; Z59.01 Sheltered homelessness; Z56.0 Unemployment, unspecified
CPT/HCPCS: 0013A; 36415; 80053; 80178; 82962; 85027; 86780; 91301; C9803; U0003; U0005

== ENCOUNTER 2021-10-03 13:19 | Inpatient (IN) | payer OTHER ==
[2021-10-03 17:28] VITALS: BMI 32.5
[2021-10-03] MEDS ORDERED: BISMUTH SUBSALICYLATE 524 MG/30 ML PO PRN (18:07)
[2021-10-03] MEDS ORDERED: ONDANSETRON *ODT* 4 MG TABLET SL PRN (18:07)
[2021-10-03] MEDS ORDERED: MAGNESIUM CITRATE 300 ML BOTTLE PO PRN (18:07)
[2021-10-03] MEDS ORDERED: MENTHOL/PHENOL 1 EACH UD MM PRN (18:07)
[2021-10-03] MEDS ORDERED: MAG HYDROX/AL HYDROX/SIMETH 30 ML UNIT-DOSE CUP PO PRN (18:07)
[2021-10-03] MEDS ORDERED: ACETAMINOPHEN 325 MG TABLET (FP) PO PRN ×2 (18:07)
[2021-10-03] MEDS ORDERED: MAGNESIUM HYDROX 2400MG/30ML ORAL SUSPENSION 30 ML CUP PO PRN (18:07)
[2021-10-03] MEDS ORDERED: NICOTINE 10 MG CARTRIDGE (INHALER) IH PRN (18:07)
[2021-10-03] MEDS ORDERED: LOPERAMIDE HCL 2 MG CAPSULE PO PRN (18:07)
[2021-10-03] MEDS ORDERED: ALBUTEROL SO4 HFA INHALER IH PRN (18:12)
[2021-10-03] MEDS ORDERED: cloNIDine HCL 0.1 MG TABLET PO PRN (18:43)
[2021-10-03] MEDS ORDERED: methaDONE HCL 10 MG TABLET (FOR DETOX USE ONLY) PO ONE (18:43)
[2021-10-03] MEDS ORDERED: MELATONIN 5 MG TABLETS PO SCH (22:00)
[2021-10-04] MEDS ORDERED: methaDONE HCL 10 MG TABLET (FOR DETOX USE ONLY) ONE ×2 (00:14→10:01)
[2021-10-04] MEDS ORDERED: hydrOXYzine PAMOATE 25 MG CAPSULE (FP) PO ONE ×3 (00:14→10:01)
[2021-10-04] MEDS: hydrOXYzine PAMOATE 25 MG CAPSULE (FP) PO SCH ×6 (00:20→23:05)
[2021-10-04] MEDS: PRENATAL VITAMINS W/ FOLIC ACID TABLET (FP) PO SCH ×2 (00:22→13:10)
[2021-10-04] MEDS: THIAMINE HCL 100 MG TABLET (FP) PO SCH ×2 (00:23→23:05)
[2021-10-04] MEDS: ATORVASTATIN CA 40 MG TABLET (FP) PO SCH ×2 (00:25→23:04)
[2021-10-04] MEDS ORDERED: IBUPROFEN 400 MG TABLET (FP) PO ONE (05:30)
[2021-10-04] MEDS: IBUPROFEN 400 MG TABLET (FP) PO PRN (05:31)
[2021-10-04] MEDS ORDERED: cloNIDine HCL 0.1 MG TABLET ONE (07:49)
[2021-10-04] MEDS ORDERED: methaDONE HCL 10 MG TABLET (FOR DETOX USE ONLY) PO ONE (10:00)
[2021-10-04] MEDS ORDERED: METHOCARBAMOL 500 MG TABLET ONE (11:40)
[2021-10-04] MEDS: METHOCARBAMOL 500 MG TABLET PO PRN ×2 (11:46→23:06)
[2021-10-04 12:21] LABS: MCH 29.6 pg (25.7-33.7); MCHC 32.9 g/dl (32.0-36.0)
[2021-10-04 12:27] LABS: BLOOD UREA NITROGEN 22.6 mg/dL (7-18); CALCIUM 9.5 mg/dL (8.5-10.1)
[2021-10-04 12:28] LABS: ALBUMIN 3.8 g/dl (3.4-5.0)
[2021-10-04 12:30] LABS: HEMATOCRIT 43.6 % (32.4-45.2); HEMOGLOBIN 14.4 GM/dL (10.7-15.3); MEAN PLT VOLUME 9.3 fl (7.5-11.1); PLATELET COUNT 256 10^3/uL (134-434); RBC 4.84 M/mm3 (3.60-5.2); RDW 13.7 % (11.6-15.6); WHITE BLOOD COUNT 10.5 K/mm3 (4.0-10.0)
[2021-10-04 12:31] LABS: CREATININE 0.9 mg/dL (0.55-1.3)
[2021-10-04 12:32] LABS: BILIRUBIN,TOTAL 0.7 mg/dL (0.2-1); TOT PROT 7.4 g/dl (6.4-8.2)
[2021-10-04] MEDS: LOSARTAN POTASSIUM 50 MG TABLET PO SCH ×2 (13:07→19:13)
[2021-10-04] MEDS: PETROLATUM, WHITE 30 GM TUBE TP SCH ×2 (13:08→19:13)
[2021-10-04] MEDS ORDERED: SUVOREXANT 10 MG TABLET PO PRN (22:00)
[2021-10-04] MEDS: LITHIUM CARBONATE 300 MG CAPSULE PO SCH (23:05)
[2021-10-05] MEDS ORDERED: methaDONE HCL 10 MG TABLET (FOR DETOX USE ONLY) PO ONE (10:00)
[2021-10-05] MEDS: hydrOXYzine PAMOATE 25 MG CAPSULE (FP) PO SCH ×5 (10:19→22:27)
[2021-10-05] MEDS: PRENATAL VITAMINS W/ FOLIC ACID TABLET (FP) PO SCH (11:57)
[2021-10-05] MEDS: PETROLATUM, WHITE 30 GM TUBE TP SCH (12:05)
[2021-10-05] MEDS: LOSARTAN POTASSIUM 50 MG TABLET PO SCH (12:07)
[2021-10-05] MEDS: IBUPROFEN 400 MG TABLET (FP) PO PRN (13:41)
[2021-10-05] MEDS: METHOCARBAMOL 500 MG TABLET PO PRN (13:42)
[2021-10-05] MEDS: THIAMINE HCL 100 MG TABLET (FP) PO SCH (22:27)
[2021-10-05] MEDS: ATORVASTATIN CA 40 MG TABLET (FP) PO SCH (22:27)
[2021-10-05] MEDS: LITHIUM CARBONATE 300 MG CAPSULE PO SCH (22:28)
[2021-10-05] MEDS: SUVOREXANT 20 MG TABLET PO PRN (22:30)
[2021-10-06] MEDS: METHOCARBAMOL 500 MG TABLET PO PRN ×3 (01:53→17:53)
[2021-10-06] MEDS: hydrOXYzine PAMOATE 25 MG CAPSULE (FP) PO SCH ×5 (05:55→22:29)
[2021-10-06] MEDS ORDERED: methaDONE HCL 10 MG TABLET (FOR DETOX USE ONLY) ONE (09:40)
[2021-10-06] MEDS: LOSARTAN POTASSIUM 50 MG TABLET PO SCH (09:54)
[2021-10-06] MEDS: PRENATAL VITAMINS W/ FOLIC ACID TABLET (FP) PO SCH (09:54)
[2021-10-06] MEDS: IBUPROFEN 400 MG TABLET (FP) PO PRN (09:56)
[2021-10-06] MEDS ORDERED: methaDONE HCL 10 MG TABLET (FOR DETOX USE ONLY) PO ONE (10:00)
[2021-10-06] MEDS: PETROLATUM, WHITE 30 GM TUBE TP SCH (10:00)
[2021-10-06] MEDS: IBUPROFEN 600 MG TABLET (FP) PO PRN ×2 (17:53→22:27)
[2021-10-06] MEDS: NIFEdipine E.R. 30 MG TABLET PO SCH (20:30)
[2021-10-06] MEDS: DOCUSATE SODIUM 100 MG CAPSULE (FP) PO SCH (22:25)
[2021-10-06] MEDS: THIAMINE HCL 100 MG TABLET (FP) PO SCH (22:25)
[2021-10-06] MEDS: ATORVASTATIN CA 40 MG TABLET (FP) PO SCH (22:25)
[2021-10-06] MEDS: LITHIUM CARBONATE 300 MG CAPSULE PO SCH (22:25)
[2021-10-06] MEDS: SUVOREXANT 20 MG TABLET PO PRN (22:29)
[2021-10-07] MEDS: METHOCARBAMOL 500 MG TABLET PO PRN ×3 (06:29→22:07)
[2021-10-07] MEDS: DOCUSATE SODIUM 100 MG CAPSULE (FP) PO SCH ×3 (06:29→22:06)
[2021-10-07] MEDS: hydrOXYzine PAMOATE 25 MG CAPSULE (FP) PO SCH ×5 (06:29→22:07)
[2021-10-07] MEDS: IBUPROFEN 600 MG TABLET (FP) PO PRN ×3 (06:30→22:07)
[2021-10-07] MEDS: PRENATAL VITAMINS W/ FOLIC ACID TABLET (FP) PO SCH (10:21)
[2021-10-07] MEDS: LOSARTAN POTASSIUM 50 MG TABLET PO SCH (10:22)
[2021-10-07] MEDS: NIFEdipine E.R. 30 MG TABLET PO SCH (10:22)
[2021-10-07] MEDS: PETROLATUM, WHITE 30 GM TUBE TP SCH (10:22)
[2021-10-07] MEDS: ATORVASTATIN CA 40 MG TABLET (FP) PO SCH (22:06)
[2021-10-07] MEDS: THIAMINE HCL 100 MG TABLET (FP) PO SCH (22:06)
[2021-10-07] MEDS: SUVOREXANT 20 MG TABLET PO PRN (22:07)
[2021-10-07] MEDS: LITHIUM CARBONATE 300 MG CAPSULE PO SCH (22:30)
[2021-10-08] MEDS: hydrOXYzine PAMOATE 25 MG CAPSULE (FP) PO SCH ×2 (05:01→09:20)
[2021-10-08] MEDS: DOCUSATE SODIUM 100 MG CAPSULE (FP) PO SCH (05:01)
[2021-10-08] MEDS: IBUPROFEN 600 MG TABLET (FP) PO PRN (05:01)
[2021-10-08 08:49] VITALS: TEMP 98
[2021-10-08 08:50] VITALS: BP 150/73; PULSE 57
[2021-10-08] MEDS: PRENATAL VITAMINS W/ FOLIC ACID TABLET (FP) PO SCH (09:19)
[2021-10-08] MEDS: NIFEdipine E.R. 30 MG TABLET PO SCH (09:20)
[2021-10-08] MEDS: LOSARTAN POTASSIUM 50 MG TABLET PO SCH (09:20)
[2021-10-08] MEDS: PETROLATUM, WHITE 30 GM TUBE TP SCH (09:21)
== END 2021-10-08 09:22 | disposition home or self-care (01) | DRG 773 ==
LOC: YASAS 13:19 → Y6N 10-04 11:30
PROVIDERS: ADMIT Allergy & Immunology; ATTEND Allergy & Immunology
PROC: HZ2ZZZZ Detoxification Services for Substance Abuse Treatment (ICD-10-PCS; principal; 2021-10-04)
DX: F11.23 Opioid dependence with withdrawal (principal); F14.20 Cocaine dependence, uncomplicated; F12.10 Cannabis abuse, uncomplicated; F31.9 Bipolar disorder, unspecified; F19.282 Other psychoactive substance dependence with psychoactive substance-induced sleep disorder; D72.829 Elevated white blood cell count, unspecified; E78.1 Pure hyperglyceridemia; E11.9 Type 2 diabetes mellitus without complications; I10 Essential (primary) hypertension; J45.20 Mild intermittent asthma, uncomplicated; L40.9 Psoriasis, unspecified; Z97.0 Presence of artificial eye; Z88.0 Allergy status to penicillin; Z59.01 Sheltered homelessness; Z56.0 Unemployment, unspecified
CPT/HCPCS: 36415; 80053; 82962; 85027; 86780; 87811; C9803-CS; J0735; U0003; U0005